=== PATIENT | female | born 1940 ===

== ENCOUNTER 2019-05-13 10:32 | Outpatient (CLI) | payer OTHER ==
[~2019-05-13] VITALS: Ht 170.2 cm; Wt 58.1 kg
[2019-05-13] MEDS ORDERED: DERMOTIC20 ML OTIC (11:12)
== END 2019-05-13 13:41 | disposition home or self-care (01) ==
LOC: OFIC 805 10:32
DX: H60.593 Other noninfective acute otitis externa, bilateral (principal); H61.23 Impacted cerumen, bilateral; J31.0 Chronic rhinitis; H90.3 Sensorineural hearing loss, bilateral

== ENCOUNTER 2019-07-16 08:50 | Outpatient (CLI) | payer OTHER ==
[~2019-07-16] VITALS: Ht 152.4 cm; Wt 58.1 kg
[~2019-07-16 08:50] MED LIST: DERMOTIC20 ML OTIC
[2019-07-16] MEDS ORDERED: DERMOTIC20 ML OTIC (11:57)
== END 2019-07-16 09:00 | disposition home or self-care (01) ==
LOC: OFIC 805 08:50
DX: L30.8 Other specified dermatitis (principal); J31.0 Chronic rhinitis; H90.3 Sensorineural hearing loss, bilateral